=== PATIENT | male | born 1995 | race Caucasian/White ===

== ENCOUNTER 2016-12-30 11:43 | Emergency (ER) | payer OTHER ==
--- NOTE | 2016-12-30 12:01 | EDM.PDOC ---
ED HPI GENERAL MEDICAL PROBLEM - General Chief Complaint: Eye Problems Time Seen by Provider: 12/30/16 11:50 Source of Information: Reports: Patient History Limitations: Reports: No Limitations - History of Present Illness INITIAL COMMENTS - FREE TEXT/NARRATIVE: 21 YO WM presents to ER with possible foreign body in left eye. Pt reports sensation of a foreign body in his left eye which began yesterday. Pt reports he feels better today but wanted to have his eye looked at anyway. Onset Date: 12/29/16 Duration: Day(s): (1) Location: Reports: Other (left eye) Severity: Mild Improves with: Reports: None Worsens with: Reports: None Associated Symptoms: Reports: No Other Symptoms - Related Data Home Meds: Home Meds Ciprofloxacin [Ciloxan 0.3% Ophth Soln] 2.5 ml EYELF Q4HR 10 Days #1 bottle [Rx] ED ROS GENERAL - Review of Systems Review Of Systems: See Below Constitutional: Reports: No Symptoms HEENT: Reports: Eye Pain Respiratory: Reports: No Symptoms Cardiovascular: Reports: No Symptoms Endocrine: Reports: No Symptoms GI/Abdominal: Reports: No Symptoms : Reports: No Symptoms Musculoskeletal: Reports: No Symptoms Skin: Reports: No Symptoms Neurological: Reports: No Symptoms Psychiatric: Reports: No Symptoms Hematologic/Lymphatic: Reports: No Symptoms Immunologic: Reports: No Symptoms ED EXAM GENERAL W FULL EYE - Physical Exam Exam: See Below Exam Limited By: No Limitations General Appearance: Alert, WD/WN, No Apparent Distress Eye Exam: Bilateral Eye: EOMI, Normal Fundi, Normal Inspection, PERRL Eyelids: Bilateral: Normal Appearance Conjunctiva & Sclera: Bilateral: Normal Appearance Cornea Exam: Bilateral: Normal Appearance, Examined with Flourescein Extraocular Movements: Bilateral: Intact Pupils: Normal Accommodation Head: Atraumatic, Normocephalic Neck: Normal Inspection, Supple, Non-Tender, Full Range of Motion Respiratory/Chest: No Respiratory Distress, Lungs Clear, Normal Breath Sounds, No Accessory Muscle Use, Chest Non-Tender Cardiovascular: Normal Peripheral Pulses, Regular Rate, Rhythm, No Edema, No Gallop, No JVD, No Murmur, No Rub GI/Abdominal: Normal Bowel Sounds, Soft, Non-Tender, No Organomegaly, No Distention, No Abnormal Bruit, No Mass Back Exam: Normal Inspection, Full Range of Motion, NT Extremities: Normal Inspection, Normal Range of Motion, Non-Tender, Normal Capillary Refill, No Pedal Edema Neurological: Alert, Oriented, CN II-XII Intact, Normal Cognition, Normal Gait, Normal Reflexes, No Motor/Sensory Deficits Psychiatric: Normal Affect, Normal Mood Skin Exam: Warm, Dry, Intact, Normal Color, No Rash Lymphatic: No Adenopathy Departure - Departure Time of Disposition: 12:11 Disposition: Home, Self-Care 01 Condition: Good Clinical Impression: Conjunctivitis Qualifiers: Conjunctivitis type: acute Laterality: left - Discharge Information Prescriptions: Ciprofloxacin [Ciloxan 0.3% Ophth Soln] 2.5 ml EYELF Q4HR 10 Days #1 bottle Instructions: Eye Foreign Body, [id number], Bacterial Conjunctivitis, Easy-to -Read Referrals: Nasir Love MD [Primary Care Provider] - Forms: ED Department Discharge - Assessment/Plan Assessment:: 1. conjunctivitis Plan: 1. ciloxin 3 gtt to affected eye Q4 x 3 days
[2016-12-30] MEDS ORDERED: Tetracaine 0.5% Ophth Soln 15 ML Bottle EYELF ONE (12:14)
[2016-12-30 12:55] VITALS: BP 147/82
== END 2016-12-30 12:25 | disposition home or self-care (01) ==
LOC: KA.ED 11:43
DX: H10.32 Unspecified acute conjunctivitis, left eye (principal)
CPT/HCPCS: 99283; A9270-GY

== ENCOUNTER 2019-04-27 09:30 | Emergency (ER) | payer OTHER ==
[2019-04-27 09:41] VITALS: BP 140/67; PULSE 74
[2019-04-27] MEDS ORDERED: Tetracaine HCl/PF 0.5% 4 ML Bottle ONE (09:59)
[2019-04-27] MEDS ORDERED: Tetracaine HCl/PF 0.5% 4 ML Bottle EYERT ONE (10:12)
[2019-04-27] MEDS ORDERED: Erythromycin Base 0.5% Ophth Oint 1 GM Tube EYERT ONE (10:13)
--- NOTE | 2019-04-27 10:19 | EDM.PDOC ---
ED [facility] GENERAL MEDICAL PROBLEM - General Chief Complaint: Eye Problems Stated Complaint: PX IN R EYE Time Seen by Provider: 04/27/19 10:12 Source of Information: Reports: Patient History Limitations: Reports: No Limitations - History of Present Illness INITIAL COMMENTS - FREE TEXT/NARRATIVE: Patient is a 23-year-old gentleman who presents to the emergency department via private vehicle with complaint of right eye pain. Patient believes he sustained a foreign body to right eye on Thursday while working. 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 Patient does not wear eye protection. Patient denies any other injury, headache, fever, or vision changes. Onset: Sudden Onset Date: 04/25/19 Duration: Day(s): Quality: Reports: Burning Severity: Mild Improves with: Reports: None Worsens with: Reports: None Context: Reports: Trauma Associated Symptoms: Reports: No Other Symptoms - Related Data Allergies Allergy/AdvReac Type Severity Reaction Status Date / Time No Known Drug Allergies Allergy Cannot Verified 04/27/19 09:46 Remember Home Meds: Home Meds . [No Known Home Meds] 04/27/19 [History] Social & Family History - Tobacco Use Smoking Status *Q: Never Smoker Second Hand Smoke Exposure: No - Caffeine Use Caffeine Use: Reports: Coffee, Energy Drinks, Soda - Recreational Drug Use Recreational Drug Use: No ED ROS GENERAL - Review of Systems Review Of Systems: Comprehensive ROS is negative, except as noted in HPI. Constitutional: Reports: No Symptoms HEENT: Reports: Eye Pain Respiratory: Reports: No Symptoms Cardiovascular: Reports: No Symptoms Endocrine: Reports: No Symptoms GI/Abdominal: Reports: No Symptoms : Reports: No Symptoms Musculoskeletal: Reports: No Symptoms Skin: Reports: No Symptoms Neurological: Reports: No Symptoms Psychiatric: Reports: No Symptoms Hematologic/Lymphatic: Reports: No Symptoms Immunologic: Reports: No Symptoms ED EXAM GENERAL W FULL EYE - Physical Exam Exam: See Below Exam Limited By: No Limitations General Appearance: Alert, WD/WN, No Apparent Distress Eye Exam: Right Eye: Foreign Body (Lateral aspect at 9 o'clock, small metal particle) Visual Acuity (R) 20/: 40 Visual Acuity (L) 20/: 20 With Correction: No Eyelids: Bilateral: Normal Appearance Conjunctiva & Sclera: Right: Injected, Left: Normal Appearance Cornea Exam: Right: Foreign Body Extraocular Movements: Bilateral: Intact Pupils: Normal Accommodation Nose: Normal Inspection Throat/Mouth: Normal Inspection, Normal Oropharynx, No Airway Compromise Head: Atraumatic, Normocephalic Neck: Normal Inspection. No: Lymphadenopathy (L), Lymphadenopathy (R) Respiratory/Chest: No Respiratory Distress Neurological: Alert, Oriented, Normal Cognition Psychiatric: Normal Affect, Normal Mood Skin Exam: Warm, Dry, Intact, Normal Color, No Rash ED EYE w/ Add Procedure - Eye Procedure Alcaine Drops Administered: Yes Eye FB Removal: Removal w/ Needle Eye Irrigated w/ Saline (ccs): 50 Antibiotic Oinment/Drps Admin: Right Eye Course - Vital Signs Last Recorded V/S: Last Vital Signs Temp 96.2 F 04/27/19 09:34 Pulse 74 04/27/19 09:34 Resp 20 04/27/19 09:34 BP 140/67 04/27/19 09:34 Pulse Ox 95 04/27/19 09:34 - Orders/Labs/Meds Orders: Active Orders 24 hr Category Date Time Status Visual Acuity [Vision Test] [RC] ASDIRECTED Care 04/27/19 10:13 Ordered Erythromycin Base [Erythromycin 0.5% Ophth Oint] Med 04/27/19 10:13 Once 1 gm EYERT ONETIME ONE Meds: Medications Discontinued Medications Generic Name Dose Route Start Last Admin Trade Name Anjel PRN Reason Stop Dose Admin Tetracaine HCl Confirm 04/27/19 09:59 Tetracaine 0.5% Steri-Unit Flor Administered 04/27/19 10:00 Dose 4 ml .ROUTE .STK-MED ONE Tetracaine HCl 1 ml 04/27/19 10:12 Tetracaine 0.5% Steri-Unit Flor EYERT 04/27/19 10:13 ASDIRECTED ONE - Re-Assessments/Exams Free Text/Narrative Re-Assessment/Exam: 04/27/19 10:20 Patient afebrile, vital signs stable, tolerated procedure well. Small metal particle foreign body removed from right eye. Erythromycin ointment applied. Patient will follow-up with ophthalmology tomorrow. Departure - Departure Time of Disposition: 10:21 Disposition: Home, Self-Care 01 Condition: Good Clinical Impression: Corneal abrasion Qualifiers: Encounter type: initial encounter Laterality: right Qualified Code(s): S05.01XA - Injury of conjunctiva and corneal abrasion without foreign body, right eye, initial encounter Corneal FB (foreign body) Qualifiers: Encounter type: initial encounter Laterality: right Qualified Code(s): T15.01XA - Foreign body in cornea, right eye, initial encounter - Discharge Information Instructions: Eye Foreign Body, [id number], Corneal Abrasion, [id number] Referrals: Nasir Love MD [Primary Care Provider] - Additional Instructions: Follow-up with Dr. Nuñez tomorrow. [phone]. Return to emergency department sooner if symptoms continue or worsen. Apply medication as directed Sepsis Event Note - Evaluation Sepsis Screening Result: No Definite Risk - Focused Exam Vital Signs: Vital Signs Temp Pulse Resp BP Pulse Ox 04/27/19 09:34 96.2 F 74 20 140/67 95 Date Exam was Performed: 04/27/19 Time Exam was Performed: 10:14 - My Orders Last 24 Hours: My Active Orders 04/27/19 10:13 Visual Acuity [Vision Test] [RC] ASDIRECTED Erythromycin Base [Erythromycin 0.5% Ophth Oint] 1 gm EYERT ONETIME ONE - Assessment/Plan Last 24 Hours: My Active Orders 04/27/19 10:13 Visual Acuity [Vision Test] [RC] ASDIRECTED Erythromycin Base [Erythromycin 0.5% Ophth Oint] 1 gm EYERT ONETIME ONE Assessment:: Foreign body removal right eye Plan: Follow-up with [facility] customer service tomorrow
[2019-04-27] MEDS ORDERED: Erythromycin Base 0.5% Ophth Oint 3.5 GM Tube EYERT ONE (10:30)
== END 2019-04-27 10:40 | disposition home or self-care (01) ==
LOC: KA.ED 09:30
DX: T15.01XA Foreign body in cornea, right eye, initial encounter (principal)
CPT/HCPCS: 65220; 99283-25

== ENCOUNTER 2019-08-18 11:13 | Emergency (ER) | payer OTHER ==
[2019-08-18] MEDS ORDERED: Tetracaine HCl/PF 0.5% 4 ML Bottle EYERT ONE (11:19)
--- NOTE | 2019-08-18 12:04 | EDM.PDOC ---
ED HPI GENERAL MEDICAL PROBLEM - General Chief Complaint: Eye Problems Time Seen by Provider: 08/18/19 11:15 Source of Information: Reports: Patient History Limitations: Reports: No Limitations - History of Present Illness INITIAL COMMENTS - FREE TEXT/NARRATIVE: Patient presents with right eye irritation since yesterday. Raúl says that around 6 or 7:00 pm yesterday he had a puff of dust blow into his eye. He doesn 't think anything metal or chunks are there. Denies visual loss or change. Right Eye Pain Score (Numeric/FACES): 5 - Related Data Allergies Allergy/AdvReac Type Severity Reaction Status Date / Time No Known Drug Allergies Allergy Cannot Verified 08/18/19 11:33 Remember Home Meds: Home Meds . [No Known Home Meds] 04/27/19 [History] Past Medical History HEENT History: Reports: Other (See Below) Other HEENT History: right eye foreign body Cardiovascular History: Reports: None Respiratory History: Reports: None Gastrointestinal History: Reports: None Genitourinary History: Reports: None Musculoskeletal History: Reports: None Neurological History: Reports: Head Trauma Psychiatric History: Reports: None Endocrine/Metabolic History: Reports: None Hematologic History: Reports: None Immunologic History: Reports: None Oncologic (Cancer) History: Reports: None Dermatologic History: Reports: None - Past Surgical History Head Surgeries/Procedures: Reports: None HEENT Surgical History: Reports: None GI Surgical History: Reports: Appendectomy Male Surgical History: Reports: None Social & Family History - Family History Family Medical History: Noncontributory - Caffeine Use Caffeine Use: Reports: Coffee, Energy Drinks, Soda ED ROS GENERAL - Review of Systems Review Of Systems: See Below Constitutional: Denies: Fever, Weakness HEENT: Reports: Eye Discharge (clear), Eye Pain. Denies: Ear Pain, Vision Change Respiratory: Denies: Shortness of Breath Cardiovascular: Reports: No Symptoms Endocrine: Reports: No Symptoms GI/Abdominal: Reports: No Symptoms : Reports: No Symptoms Musculoskeletal: Reports: No Symptoms Skin: Reports: No Symptoms Neurological: Reports: No Symptoms Psychiatric: Reports: No Symptoms ED EXAM GENERAL W FULL EYE - Physical Exam Exam: See Below Exam Limited By: No Limitations General Appearance: Alert, WD/WN, No Apparent Distress Eye Exam: Right Eye: Conjunctival Injection, Foreign Body, Left Eye: Normal Inspection, Bilateral Eye: EOMI, PERRL Eyelids: Right: Erythema, Foreign Body (right upper inner lateral removed with moistened Q-tip), Left: Normal Appearance Conjunctiva & Sclera: Bilateral: Normal Appearance Cornea Exam: Bilateral: Normal Appearance Extraocular Movements: Bilateral: Intact Pupils: Normal Accommodation Pupillary Size: Bilateral: 2 mm Ears: Normal External Exam Nose: Normal Inspection, No Blood Throat/Mouth: Normal Inspection, Normal Voice, No Airway Compromise Head: Atraumatic, Normocephalic Neck: Normal Inspection, Full Range of Motion Respiratory/Chest: No Respiratory Distress Extremities: Normal Inspection, Normal Range of Motion Neurological: Alert, Oriented, Normal Cognition, No Motor/Sensory Deficits Psychiatric: Normal Affect, Normal Mood Skin Exam: Warm, Dry, Intact, Normal Color ED EYE w/ Add Procedure - Eye Procedure Alcaine Drops Administered: Yes Eye FB Removal: Removal w/ Cotton Swab Eye Irrigated w/ Saline (ccs): 60 (David lens) Progress: A very small FB was visualized in lateral upper eyelid that was easily removed with moistened Q-tip. There was no evidence of laceration or abrasions throughout. A few dust particles were visualized with fluorescein uptake so the David lens was used to flush thoroughly. Course - Vital Signs Last Recorded V/S: Last Vital Signs Temp 98.4 F 08/18/19 11:33 Pulse 67 08/18/19 11:33 Resp 16 08/18/19 11:33 BP 149/87 H 08/18/19 11:33 Pulse Ox 94 L 08/18/19 11:33 - Orders/Labs/Meds Meds: Medications Discontinued Medications Generic Name Dose Route Start Last Admin Trade Name Anjel PRN Reason Stop Dose Admin Tetracaine HCl 1 ml 08/18/19 11:19 08/18/19 11:45 Tetracaine 0.5% Steri-Unit Flor EYERT 08/18/19 11:20 3 drop ASDIRECTED ONE Administration - Re-Assessments/Exams Free Text/Narrative Re-Assessment/Exam: 08/18/19 12:05 Discussed findings and treatment plan with patient. He feels much better. He has antibiotic eye ointment at home from a similar episode 4 months ago that he can use he says. He is discharged to home in stable condition. Departure - Departure Time of Disposition: 12:04 Disposition: Home, Self-Care 01 Condition: Good Clinical Impression: Foreign body of right eye Qualifiers: Encounter type: initial encounter Qualified Code(s): T15.91XA - Foreign body on external eye, part unspecified, right eye, initial encounter - Discharge Information Instructions: Eye Foreign Body, [id number] Referrals: Nasir Love MD [Primary Care Provider] - Additional Instructions: 1. Use your antibiotic eye ointment 4 times a day for 2-3 days. 2. If not improved in 1-2 days follow up with your eye doctor. Sepsis Event Note - Evaluation Sepsis Screening Result: No Definite Risk - Focused Exam Vital Signs: Vital Signs Temp Pulse Resp BP Pulse Ox 08/18/19 11:33 98.4 F 67 16 149/87 H 94 L Date Exam was Performed: 08/18/19 Time Exam was Performed: 11:52
[2019-08-18 12:33] VITALS: BP 149/87; PULSE 67
== END 2019-08-18 12:05 | disposition home or self-care (01) ==
LOC: KA.ED 11:13
DX: T15.91XA Foreign body on external eye, part unspecified, right eye, initial encounter (principal)
CPT/HCPCS: 65220; 99283